=== PATIENT | female | born 1935 | race Caucasian/White ===

== ENCOUNTER → 2017-10-25 12:07 | Outpatient (CLI) | payer MEDICARE, OTHER, SELFPAY ==
--- NOTE | 2017-10-25 | DI.MG.S_ITS ---
BILATERAL DIGITAL SCREENING MAMMOGRAM 3D/2D WITH CAD: 10/25/2017 CLINICAL: Routine screening. Personal history of left breast cancer. Family history of breast cancer. Comparison is made to exams dated: 10/11/2016 mammogram, 10/07/2015 mammogram, and 09/22/2015 mammogram - [facility]. There are scattered fibroglandular elements in both breasts. Current study was also evaluated with a Computer Aided Detection (CAD) system. There are post operative findings in the left breast. No significant masses, calcifications, or other findings are seen in either breast. There has been no significant interval change. IMPRESSION: NEGATIVE There is no mammographic evidence of malignancy. A 1 year screening mammogram is recommended. This exam was interpreted at Station ID: [id number]. NOTE: For mammograms, a report in lay terms will be sent to the patient. Approximately 15% of breast malignancies will not be visualized mammographically. In the management of a palpable breast mass, a negative mammogram must not discourage biopsy of a clinically suspicious lesion. Electronically Signed By: Nolberto martinez/brigido:10/26/2017 17:41:48 letter sent: Normal Exam ACR BI-RADS Category 1: Negative 3341F
== END ==
PROVIDERS: Visit Provider Family Medicine
DX: Z12.31 Encounter for screening mammogram for malignant neoplasm of breast (principal); Z85.3 Personal history of malignant neoplasm of breast; Z80.3 Family history of malignant neoplasm of breast
CPT/HCPCS: 77063; 77067

== ENCOUNTER → 2018-10-30 15:06 | Outpatient (CLI) | payer MEDICARE, OTHER, SELFPAY ==
--- NOTE | 2018-10-30 | DI.MG.S_ITS ---
BILATERAL DIGITAL SCREENING MAMMOGRAM 3D/2D WITH CAD POST LUMPECTOMY: 10/30/2018 CLINICAL: Routine screening. Personal history of left breast cancer. Family history of breast cancer. Comparison is made to exams dated: 10/25/2017 mammogram, 10/11/2016 mammogram, and 09/22/2015 mammogram - [facility]. There are scattered fibroglandular elements in both breasts. Current study was also evaluated with a Computer Aided Detection (CAD) system. There are benign post operative findings in the left breast. No significant masses, calcifications, or other findings are seen in either breast. There has been no significant interval change. IMPRESSION: There is no mammographic evidence of malignancy. A 1 year screening mammogram is recommended. NOTE: For mammograms, a report in lay terms will be sent to the patient. Approximately 15% of breast malignancies will not be visualized mammographically. In the management of a palpable breast mass, a negative mammogram must not discourage biopsy of a clinically suspicious lesion. Electronically Signed By: Bert hunt/brigido:10/30/2018 18:06:59 letter sent: Normal Exam ACR BI-RADS Category 2: Benign Finding(s) 3342F
== END ==
PROVIDERS: PCP Family Medicine; Visit Provider Family Medicine
DX: Z12.31 Encounter for screening mammogram for malignant neoplasm of breast (principal); Z85.3 Personal history of malignant neoplasm of breast; Z80.3 Family history of malignant neoplasm of breast
CPT/HCPCS: 77063; 77067

== ENCOUNTER → 2019-06-05 15:36 | Outpatient (CLI) | payer MEDICARE, OTHER, SELFPAY ==
--- NOTE | 2019-06-05 15:39 | DI.MRI.S_ITS ---
PROCEDURE: MR HEAD/BRAIN WO/W CON INDICATIONS: Headache TECHNIQUE: Noncontrast axial T1 spin echo, axial T2 fast spin echo, sagittal and axial FLAIR, coronal T2 fast spin echo, axial gradient echo, axial diffusion and ADC through the brain. After the administration of contrast, axial and coronal T1 spin echo with fat saturation through the brain. COMPARISON: None. FINDINGS: Image quality: Excellent. CSF spaces: Basal cisterns are patent. No extra-axial fluid collections. Ventricles are normal in size and shape. Brain: No midline shift. No intracranial bleeds or masses. No abnormal intracranial enhancement. There is cerebral volume loss for age. There is periventricular white matter chronic small vessel ischemic change. The brainstem appears normal. Diffusion-weighted images demonstrate no acute ischemic insults. No chronic ischemic insults. Normal intravascular flow voids are present. Skull and face: Calvarial marrow is normal in signal. Orbits appear normal. Sinuses: Sinuses and mastoids appear clear. IMPRESSION: 1. No explanation for headache. 2. Volume loss and small vessel ischemic disease. Dictated by: Jose Renteria M.D. on 06/05/2019 at 16:40 Approved by: Jose Renteria M.D. on 06/05/2019 at 16:43
== END ==
PROVIDERS: PCP Family Medicine; Referring Provider Family Medicine; Visit Provider Family Medicine
DX: C20 Malignant neoplasm of rectum (principal); R51 Headache
CPT/HCPCS: 70553

== ENCOUNTER → 2019-11-27 12:12 | Outpatient (CLI) | payer MEDICARE, OTHER, SELFPAY ==
--- NOTE | 2019-11-27 12:34 | DI.MG.S_ITS ---
Patient Name: KELSY JOHNSON date: 1935 Sex: F Attending Physician: Mahin Indications: Date: 11/27/2019 12:26 At the request of: NABEEL DIAZ Procedure: MM screening mammo BI BILATERAL DIGITAL SCREENING MAMMOGRAM 3D/2D WITH CAD POST LUMPECTOMY: 11/27/2019 CLINICAL: Routine screening. Family history of breast cancer. Breast cancer. Comparison is made to exams dated: 10/30/2018 mammogram, 10/25/2017 mammogram, and 10/11/2016 mammogram - [facility]. There are scattered fibroglandular elements in both breasts. Current study was also evaluated with a Computer Aided Detection (CAD) system. There are benign calcifications in both breasts. There also are benign post operative findings in the left breast. No significant masses, calcifications, or other findings are seen in either breast. There has been no significant interval change. IMPRESSION: BENIGN There is no mammographic evidence of malignancy. A 1 year screening mammogram is recommended. This exam was interpreted at Station ID: [id number]. NOTE: For mammograms, a report in lay terms will be sent to the patient. Approximately 15% of breast malignancies will not be visualized mammographically. In the management of a palpable breast mass, a negative mammogram must not discourage biopsy of a clinically suspicious lesion. Electronically Signed By: Bert hunt/brigido:11/27/2019 12:47:23 letter sent: Normal Exam ACR BI-RADS Category 2: Benign Finding(s) 3342F
== END ==
PROVIDERS: PCP Family Medicine; Referring Provider Family Medicine; Visit Provider Family Medicine
DX: Z12.31 Encounter for screening mammogram for malignant neoplasm of breast (principal); Z85.3 Personal history of malignant neoplasm of breast; Z80.3 Family history of malignant neoplasm of breast
CPT/HCPCS: 77063; 77067

== ENCOUNTER → 2020-01-25 11:08 | Outpatient (CLI) | payer MEDICARE, OTHER, SELFPAY ==
--- NOTE | 2020-01-25 | DI.MRI.S_ITS ---
PROCEDURE: MR LUMBAR SPINE WO CON INDICATIONS: Radiculopathy, lumbar region TECHNIQUE: Noncontrast sagittal T1 spin echo and T2 fast echo, sagittal STIR, axial T1 and T2 fast spin echo through the lumbar spine. In cases with scoliosis, additional coronal T2 fast spin echo may be performed. COMPARISON: None. FINDINGS: Image quality: Excellent. Alignment and Curvature: Grade 1 anterolisthesis of L4 on L5. Possible chronic bilateral L5-S1 pars defects although evaluation limited by superimposed degenerative changes and technically indeterminate. Bone Marrow: Multilevel degenerative endplate sclerosis and spurring. Diffuse facet arthropathy. No acute vertebral body compression fractures. Spinal Cord: Conus medullaris terminates at the L1-L2 level. Visualized cord demonstrates normal signal and size. Paraspinous Soft Tissues: No paravertebral masses. 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 L1-L2: No canal stenosis. Mild bilateral foraminal narrowing. Lateral recesses appear grossly patent. L2-L3: Posterior annular fissure. Minimal canal narrowing. Partial effacement of both lateral recesses with bilaterally symmetric appearance. Mild bilateral foraminal narrowing. L3-L4: Mild canal narrowing. Partial effacement of both lateral recesses with bilaterally symmetric appearance. Mild bilateral foraminal narrowing. L4-L5: Mild dorsal epidural lipomatosis. Moderate canal stenosis. Partial effacement of both lateral recesses with bilaterally symmetric appearance. Mild bilateral foraminal stenosis. L5-S1: Minimal canal narrowing. Lateral recesses appear grossly patent. No foraminal stenoses IMPRESSION: Diffuse lumbar spondylosis and facet arthropathy with grade 1 anterolisthesis of L4 on L5. Moderate L4-L5 canal stenosis Multilevel, bilateral foraminal narrowing as detailed above by spinal level Dictated by: Shayan Conte M.D. on 01/27/2020 at 9:03 Approved by: Shayan Conte M.D. on 01/27/2020 at 9:11
== END ==
PROVIDERS: PCP Family Medicine; Referring Provider Family Medicine; Visit Provider Family Medicine
DX: M47.26 Other spondylosis with radiculopathy, lumbar region (principal); M43.16 Spondylolisthesis, lumbar region; M48.061 Spinal stenosis, lumbar region without neurogenic claudication
CPT/HCPCS: 72148

== ENCOUNTER → 2020-12-22 15:27 | Outpatient (CLI) | payer MEDICARE, OTHER, SELFPAY ==
--- NOTE | 2020-12-22 15:29 | DI.MG.S_ITS ---
BILATERAL DIGITAL SCREENING MAMMOGRAM 3D/2D WITH CAD: 12/22/2020 CLINICAL: Routine screening. Personal history of left breast cancer. Family history of breast cancer. Comparison is made to exams dated: 11/27/2019 mammogram, 10/30/2018 mammogram, and 10/25/2017 mammogram - [facility]. There are scattered fibroglandular elements in both breasts. Current study was also evaluated with a Computer Aided Detection (CAD) system. There are benign calcifications in both breasts. There also are benign post operative findings in the left breast. No significant masses, calcifications, or other findings are seen in either breast. There has been no significant interval change. IMPRESSION: BENIGN There is no mammographic evidence of malignancy. A 1 year screening mammogram is recommended. This exam was interpreted at Station ID: [id number]. NOTE: For mammograms, a report in lay terms will be sent to the patient. Approximately 15% of breast malignancies will not be visualized mammographically. In the management of a palpable breast mass, a negative mammogram must not discourage biopsy of a clinically suspicious lesion. Electronically Signed By: Fredrick Devine M.D., jr/brigido:12/22/2020 15:57:42 letter sent: Normal Exam ACR BI-RADS Category 2: Benign Finding(s) 3342F
== END ==
PROVIDERS: PCP Family Medicine; Referring Provider Family Medicine; Visit Provider Family Medicine
DX: Z12.31 Encounter for screening mammogram for malignant neoplasm of breast (principal); Z80.3 Family history of malignant neoplasm of breast; Z85.3 Personal history of malignant neoplasm of breast
CPT/HCPCS: 77063; 77067

== ENCOUNTER → 2021-05-04 13:01 | Outpatient (CLI) | payer MEDICARE, OTHER, SELFPAY ==
--- NOTE | 2021-05-04 13:03 | DI.MRI.S_ITS ---
PROCEDURE: MR LUMBAR SPINE WO CON INDICATIONS: Radiculopathy, lumbar region TECHNIQUE: Noncontrast sagittal T1 spin echo and T2 fast echo, sagittal STIR, axial T1 and T2 fast spin echo through the lumbar spine. In cases with scoliosis, additional coronal T2 fast spin echo may be performed. COMPARISON: [facility], MR, MR LUMBAR SPINE WO CON, 01/25/2020, 11:24. FINDINGS: Image quality: Excellent. Alignment and Curvature: Grade 1 anterior listhesis at L4-5 is again noted associated with hypertrophic facet joints. Small subchondral cyst noted on the left.. Bone Marrow: Marrow is of normal overall signal. No acute vertebral body compression fractures. Spinal Cord: Conus medullaris terminates at the L1 level. Visualized cord demonstrates normal signal and size. Paraspinous Soft Tissues: No paravertebral masses. T12-L1: Disc height is preserved. No central or foraminal stenosis. L1-L2: Disc height is preserved. No central or foraminal stenosis. L2-L3: Disc height is preserved. There is mild circumferential disc bulge resulting in mild central stenosis. No foraminal stenosis present. L3-L4: Disc height is preserved. There is a circumferential disc bulge present with mild hypertrophic facet joints. Mild central stenosis without foraminal stenosis. Edema in the interspinous ligament with bone marrow edema in the associated spinous processes is new from the prior exam. L4-L5: Hypertrophic facet joints, ligamentum flavum laxity and circumferential disc bulge all combined result in moderate central stenosis. No significant foraminal stenosis noted. L5-S1: Disc height is preserved. No central or foraminal stenosis. Hypertrophic facet joints present. Incidental left sacral perineural cyst, Tarlov cyst. IMPRESSION: 1. Multilevel degenerative disc disease and arthropathy results in moderate central stenosis at L4-5, similar prior exam. 2. Interspinous ligamental edema at L3-4 is new from the prior exam, consistent with inter spinous ligamental degeneration Approved by: Catarino Santoyo M.D. on 05/04/2021 at 15:48
== END ==
PROVIDERS: PCP Family Medicine; Referring Provider Family Medicine; Visit Provider Family Medicine
DX: M51.16 Intervertebral disc disorders with radiculopathy, lumbar region (principal); M47.26 Other spondylosis with radiculopathy, lumbar region
CPT/HCPCS: 72148

== ENCOUNTER → 2021-07-12 09:46 | Outpatient (CLI) | payer MEDICARE, OTHER, SELFPAY ==
[2021-07-12 13:05] LABS: COVID19 -Nasal RAPID Negative (Negative)
== END ==
PROVIDERS: PCP Family Medicine; Visit Provider Family Medicine Sleep Medicine
DX: Z20.822 Contact with and (suspected) exposure to COVID-19 (principal)
CPT/HCPCS: 87635; C9803

== ENCOUNTER 2021-07-14 12:19 | Day surgery (SDC) | payer MEDICARE, OTHER, SELFPAY ==
[2021-07-12 13:26] VITALS: BMI 29.0
[2021-07-14] VITALS (19 sets, daily range): BP systolic 132–160; BP diastolic 72–109; PULSE 62–108; RESP 12–18; TEMP 36.1–36.7; O2SAT 93–100; BMI 29.0
--- NOTE | 2021-07-14 | DI.RAD.S_ITS ---
PROCEDURE: XR LUMBAR SPINE 2-3V INDICATIONS: TLIF L4-5 TECHNIQUE: 3 intraoperative fluoroscopic spot films were obtained COMPARISON: None. FINDINGS: Intraoperative fluoroscopic low resolution spot films show L4-5 interbody fusion cage with posterior maryanne and screw instrumentation in good position IMPRESSION: Fluoroscopic guidance Approved by: Catarino Santoyo M.D. on 07/14/2021 at 17:54
[2021-07-14] MEDS: LACTATED RINGERS 1,000 ML 42 ML IV ×2 (13:22→16:54)
[2021-07-14] MEDS: ACETAMINOPHEN 325 MG TABLET 975 MG PO (13:24)
--- NOTE | 2021-07-14 15:35 | PM.PREOP ---
Pre-operative Note COVID-19 COVID-19 status: Negative Result date/Date tested (Pos, Neg/Pending): 07/13/21 Criteria for continued procedure: Expected advancement of disease process, Possibility delay results in more complex future surgery or treatment, Increased loss of function, Continuing or worsening of significant or severe pain, Deterioration of the patient's condition or overall health and Delay expected to result in less-positive ultimate med/surg outcome Interval Note History & Physical reviewed/Exam performed by Physician: Yes Changes to H&P: No
--- NOTE | 2021-07-14 15:44 | SUR.OPER ---
Prone on spine table, head in foam head support, padded chest and pelvic supports, gel pad at knees, lower legs supported by pillows; nipples, genitalia and toes free of pressure, arms secured on foam padded arm boards at <90 degrees abduction. Tape over blanket at thigh secured to table.
[2021-07-14] MEDS: CEFAZOLIN 2 GM/20 ML SYRINGE IV ×2 (16:26→20:51)
[2021-07-14] MEDS: BUPIVACAINE 0.25% (PF) 30 ML, EPINEPHrine 0.3 MG INJ (16:49)
[2021-07-14] MEDS: BUPIVACAINE LIPOSOME 266 MG/20 ML VIAL INJ (16:49)
--- NOTE | 2021-07-14 18:25 | P.OP_ITS ---
Operative Date/Time/Diagnoses Date of procedure: 07/14/21 Time of procedure: 16:30 Pre-op diagnosis: 1. L4-5 spondylolisthesis 2. L4-5 spinal stenosis with neurogenic claudication Post-op diagnosis: same Procedure & Clinicians Procedure: 1. L4-5 Postero-lateral and posterior interbody fusion 2. L4-5 interbody cage placement. 3. L4-5 decompressive laminectomy with bilateral facetecomies 4. L4-5 Posterior non-segmental instrumentation 5. [place] of bone marrow from iliac crest 6. Utilization of microsurgical technique and operating microscope Same procedure as scheduled: Yes Indications: Patient has been having chronic back pain and worsening lumbar neurogenic claudication due to severe spinal stenosis at L4-5 level. Patient failed multiple conservative management with worsening pain weakness and numbness in her lower extremity. Patient has been having difficulty performing activity of daily living. After discussing risks benefits of treatment options, patient elected proceed with surgery. Surgeon: Sheryl Nelson Mc Kay Machine Operator: Autumn Jhaveri Click Yes if Unassisted: No Anesthesia Type: General Operative Notes Specimen(s): none sent Prosthetic devices, grafts, tissues, transplants, or devices: Globus revolve screws, Rise cage Applied: catheter Estimated Blood Loss (mL): 50 Blood products transfused: none Procedure in detail: Patient was seen in the preoperative area. Risks and benefits of the surgery was discussed with the patient. Informed consent was obtained from the patient and placed in the chart. Surgical site was marked. Patient was taken to the operative room. General anesthesia was administered. Prophylactic antibiotic was given to the patient less than 30 min before the incision was made. Patient was placed into a prone position on the [place] table. Patient's back was then prepped and draped in the sterile fashion. Time-out was performed at this time. Using AP and lateral C-arm imaging the interval between L4-5 was identified and marked on patient's back. A 2 inch incision 2 in from midline was made on the right side first. The fascia was incised in line with skin incision. Globus MARS retractors was placed inside the incision and docked onto the L4 lamina. Using microsurgical technique and operating microscope, a L4 laminectomy and L4- 5 facetectomy was performed using a Kerrison rongeur. The disc space at L4-5 was identified. And a total diskectomy was performed at L4-5 level. The endplates were decorticated using a rasp and shaver. The total diskectomy and decortication was performed at L4-5 level in order to to accomplish a L4-5 fusion. The local bone from the laminectomy and facetectomy was saved for local bone grafting. After the total diskectomy and decortication was completed, Trifecta bone graft material was combined with local bone that was harvested earlier. At this time, a separate skin is incision was made over the iliac crest. A Jamshidi needle was inserted into the iliac crest through a separate skin incision. 5 cc of bone marrow aspiration was obtained through the separate skin incision using a Jamshidi needle from the iliac crest. The bone marrow aspiration was combined with local bone and the Trifecta bone grafting material. The bone grafting material was placed into the L4-5 interbody space along with a expandable cage. The cage was expanded to its maximum height using the torque limiting screwdriver. At this time a mirror image incision was made on the left side. The fascia was incised in line with the skin incision. Globus MARS retractor was inserted and docked onto the L4-5 posterolateral gutter. Using the power drill, posterior- lateral decortication was performed at L4-5 level until bleeding cortical bone was identified. The remaining bone grafting material was placed into the L4-5 posterior lateral gutter he order to accomplish posterolateral fusion at the L4- 5 level. Using the double C-arm technique, pedicle screws were placed into the L4-5 pedicles bilaterally. This was done by placing the Jamshidi needle into the pedicles, then placing the guidewires over the Jamshidi needle, and finally placing the cannulated screws over the guidewires bilaterally. After the pedicle screws were placed, 2 titanium rods was locked into the heads of the pedicle screws using locking caps and torque limiting screwdriver. After all the hardware was placed, and confirmed with AP and lateral C-arm imaging, the wound was then irrigated with sterile normal saline and packed with Ray-Tess gauze for 3 min to accomplish hemostasis. After the gauze was removed the deep fascia was closed with #1 Vicryl suture. The subcutaneous layer was closed with 2-0 Vicryl. The skin was closed with skin alber. Patient tolerated the procedure well. There were no complications. Complications: none Post-operative Condition: stable Disposition: PACU Plan for aftercare: Admit to inpatient hospital
[2021-07-14] MEDS: hydrOXYzine 50 MG/ML INJ IM (18:39)
[2021-07-14] MEDS: OXYCODONE IR 5 MG TABLET PO ×2 (18:48→19:18)
[2021-07-14] MEDS: TRAMADOL 50 MG TABLET PO (20:51)
[2021-07-14] MEDS: ACETAMINOPHEN 325 MG TABLET 650 MG PO (20:51)
[2021-07-14] MEDS: SODIUM CHLORIDE 0.9% 1,000 ML 100 ML IV (20:52)
[2021-07-15] MEDS: CEFAZOLIN 2 GM/20 ML SYRINGE IV (03:09)
[2021-07-15] MEDS: ACETAMINOPHEN 325 MG TABLET 650 MG PO ×2 (03:09→08:15)
[2021-07-15 04:00] VITALS: BP 104/43; PULSE 60; RESP 18; TEMP 36.5; O2SAT 98
--- NOTE | 2021-07-15 07:36 | P.PN_ITS ---
Subjective Subjective Date Patient Seen: 07/15/21 Time Patient Seen: 07:36 Interval history: Pain is been [id number]. Patient still is yet to work with physical therapy. She denies fever or chills. No nausea vomiting. Exam Vital Signs (past 8 hours): - 07/15/21 04:00 Temperature 97.7 F Pulse Rate 60 Respiratory Rate 18 Blood Pressure 104/43 L Pulse Oximetry 98 Oxygen Delivery Method Nasal Cannula Oxygen Flow Rate 0 Narrative Exam Narrative: Pleasant 86-year-old female resting comfortably in bed in no apparent distress. Motor functions intact bilateral lower extremities. Sensation grossly intact to light touch bilateral lower extremities. Const General: cooperative Orientation: alert Resp Effort & Inspection: normal respiratory effort PFSH Medical History Arthritis Breast cancer, left (2004) Colon cancer (2011) Diverticulosis HTN (hypertension) Phlebitis Seasonal allergies Surgical History History of hysterectomy History of lumpectomy of left breast (2004) History of surgery (2016) Hx of arthroscopy of left knee (2012) Hx of bilateral cataract extraction (2014) Hx of vein stripping (1971) Social History household members: none Smoking Status: Former smoker alcohol intake: current Assessment & Plan Post-op Postoperative Procedures: Procedures Operation Date: 07/14/21 14:15 Actual Procedure Side Surgeon p L4-5 TLIF Sheryl Nelson MD Postoperative day: 1 Postoperative status: doing well Postoperative status narrative: Patient progressing as expected status post L4- L5 lumbar fusion Postoperative plan: routine post-op care Postoperative plan narrative: Mobilize with physical therapy Multimodal pain management Disposition home later today or tomorrow. Quality VTE Deep Vein Thrombosis/Pulmonary Embolism Present on Admission: No
[2021-07-15] MEDS: hydrOXYzine pamoate 25 MG CAPSULE PO (08:16)
--- NOTE | 2021-07-15 09:14 | CM.DANOTE ---
DCP: Case received, EMR reviewed and met with patient. Introduced self and role. Was able to obtain information regarding patient's baseline activity status prior to her surgery. DCP assessment completed with information currently available. Patient is an 86 year old female who admitted yesterday morning to the care of the orthopedic team. PCP: Dr. Galindo Payer: confirmed: Medicare. Patient came to the hospital for a surgical procedure. Patient had L4-5 postero-lateral and posterior interbody fusion. Patient has history of chronic back pain secondary to spondylolisthesis and spinal stenosis. Met with patient in her room. She was sitting up in her chair, alert and oriented, pleasant. Patient [place] alone on [address], she is a . 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 At her baseline, she is independent and drives. She confirmed that her son, Renan, will be staying with her for a few days. P: DCP to continue to follow. She will be working with P.T. today. Plan is home when stable. Jeanna Olmos RN/Senior Bioinformatics Scientist Discharge Planning/Care Management CM Discharge Assessment Start: 07/15/21 09:13 Freq: Status: Active Protocol: Document 07/15/21 09:13 (Rec: 07/15/21 09:14 [id number]) Discharge Planning Assessment Assigned Engineer And Geologist Jeanna Olmos RN/Senior Bioinformatics Scientist Advance Directives? Yes Advance Directives on File No History Provided By Patient,Medical Record Prior Living Arrangements House Household Members none Type of transporation used prior to Drives own vehicle admit Independent with ADL's Yes Is patient alert and oriented? Yes Caregiver for Another No Barriers to Discharge No Comment Patient indicated, her son will be staying with her for a few days. Discharge Plan Home Transportation Arrangement Son Referrals Initiated None needed Whiteboard Updated in Patient Room with Yes name and ext. 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 Patient Information Reviewed Via Phone Assessment Assessment Completed With Patient Diagnostic Results BMP/CMP,CBC,EKG Comment Outside labs/ECG scanned, COVID screen @ 07/12/21 Primary Care Provider Bry Cross Seen Specialist in Last 12 Months Yes Specialist Seen Windmill Mechanic,Opthamologist/ Ferryboat Pilot,Orthopedist Comment PCP pre-op exam 06/14/21 w/labs scanned to record Primary Language Slovak Sales Negotiator Required No Height 5 ft 7 in Weight 185 lb Body Mass Index (BMI) 29.0 Hearing Ability Normal Visual Assist Magnifying Glass Dentition Type Teeth, Natural Present Barriers to Learning None Hx Anesthesia Reactions No Hx Family Anesthesia Reaction No Hx Malignant Hyperthermia No Hx Blood Transfusions No Anesthesia Review Requested No alcohol intake current alcohol intake frequency 0-2 drinks per day Smoking Status Former smoker Smoking packs per day 0.5 how long ago did patient quit smoking Quit in her 20's Substance Use Type does not use Pain Present Pain Reported Musculoskeletal Symptoms Back Pain,Difficulty Walking, Limited Range of Motion History of Falling (Recent or History of No ) Patient is completely paralyzed or No completely immobile Mental Status Oriented to own ability Is patient on oxygen? No Does patient have CUNHA/SOB No Hx Sleep Apnea No Currently Taking a Beta Mike No Can You Climb a Flight of Stairs Without Yes SOB Hx Chest Pain No Hx SOB No Hx Syncope or Dizziness No Anti-Coagulant Therapy No Has a Natural Resource Economist No Cardiac Testing No Hx Pacemaker/ICD No Pacemaker Rep Required? No Cardiac Clearance Received Not Applicable Diet Type At Home Regular dysphagia No Gastrointestinal Symptoms Loose Stools Bladder Pattern Incontinent,Urgency Urinary Catheter Present No Hx Urinary Self Catheterization No Diabetes No Patient No Lactating No Hx Drug Resistant Organism No Presence of External or Internal Medical No Devices Have you had any close contact with No someone diagnosed with COVID-19? Received a COVID vaccine? Yes Received all doses? Yes Marital Status / Lives With none Prior Living Arrangements House Number of Floors (Floors) Two Floors Support System Child/Children Does the Patient Have Assistance After Yes: Son will stay w/pt to Surgery assist with care at DC Patient Discharge Plan Description Return Home Comment Pt advised overnight length of stay per surgeon Feels Safe in Current Environment Yes Been Physically Hurt or Threatened By a No Person in Current Environment Do you have thoughts of harming yourself None or others? Are you currently considering suicide? No Do you have a plan to hurt yourself or No Plan others? Do You Have Any Spiritual Beliefs That No May Affect Your HC Choices? Do You Have Any Cultural Practices That No May Affect Your HC Choices? Who Can We Speak to About Patient's Care Family, friends Identifying Code for Release of Patient Declines to issue Information Health Care Proxy/Next of Kin Renan (son) Health Care Proxy Emergency Contact Name Renan (son) Emergency Contact Advance Directives? Yes Advance Directives on File No Requested Patient Bring Advanced Yes Directives DOS Power of Senior Software Tester Yes Power of Senior Software Tester Name Renan Power of Senior Software Tester PAC Instructions Durable medical equipment, Medications to take/avoid, Nasal antibiotic,No ETOH/ petroleum product on skin DOS, NPO,Post-op transportation,Pre -surgical wash,Sturdy shoes/ comfortable clothes,Do not bring valuables and remove jewelry
[2021-07-15] MEDS: CALCIUM CARB/VIT D3 500/200 TABLET 1 EACH PO (09:15)
--- NOTE | 2021-07-15 09:39 | P.DS_ITS ---
History of Present Illness History of Present Illness Date Patient Seen: 07/15/21 Time Patient Seen: 09:39 Chief complaint: Back pain Narrative: See progress note Discharge Providers Provider Discharge Date: 07/15/21 Primary care physician: ISAURA Lynn Consults: 07/14/21 19:45 Consult to Occupational Therapy Evaluate & Treat Comment: Physician Instructions: Evaluate and treat Consult to Physical Therapy Evaluate & Treat Comment: Physician Instructions: Evaluate and Treat Discharge provider: Cecilio Khan PA-C Summary Hospital Course Discharge Diagnosis: 1. L4-5 spondylolisthesis 2. L4-5 spinal stenosis with neurogenic claudication Hospital Course: 1. L4-5 Postero-lateral and posterior interbody fusion 2. L4-5 interbody cage placement. 3. L4-5 decompressive laminectomy with bilateral facetecomies 4. L4-5 Posterior non-segmental instrumentation 5. [place] of bone marrow from iliac crest 6. Utilization of microsurgical technique and operating microscope Same procedure as scheduled: Yes Indications: Patient has been having chronic back pain and worsening lumbar neurogenic claudication due to severe spinal stenosis at L4-5 level. Patient failed multiple conservative management with worsening pain weakness and numbness in her lower extremity.? Patient has been having difficulty performing activity of daily living.? After discussing risks benefits of treatment options, patient elected proceed with surgery. Surgeon: Sheryl Nelson Pulverizer Tender: Autumn Jhaveri Click Yes if Unassisted: No Anesthesia Type: General Operative Notes Specimen(s): none sent Prosthetic devices, grafts, tissues, transplants, or devices: Globus revolve screws, Rise cage Applied: catheter Estimated Blood Loss (mL): 50 Blood products transfused: none Patient admitted to the hospital for the above-mentioned procedure. Patient taken to the operating room. Patient back in her room recovering well as in stable condition. Discharge home today in stable condition. Exam Vital Signs (past 8 hours): - 07/15/21 04:00 Temperature 97.7 F Pulse Rate 60 Respiratory Rate 18 Blood Pressure 104/43 L Pulse Oximetry 98 Oxygen Delivery Method Nasal Cannula Oxygen Flow Rate 0 Narrative Exam Narrative: See progress note PFSH Medical History Arthritis Breast cancer, left (2004) Colon cancer (2011) Diverticulosis HTN (hypertension) Phlebitis Seasonal allergies Surgical History History of hysterectomy History of lumpectomy of left breast (2004) History of surgery (2016) Hx of arthroscopy of left knee (2012) Hx of bilateral cataract extraction (2014) Hx of vein stripping (1971) Social History household members: none Smoking Status: Former smoker alcohol intake: current Discharge Assessment & Plan Assessment and Plan Assessment: Patient progressing as expected status post L4-L5 lumbar fusion Plan of Treatment: Discharge home today in stable condition Discharge Plan Discharge Plan Patient Disposition: Home Provider Discharge Comment: Discharge home after physical therapy Discharge orders & Medications Discharge Orders: Discharge (Order); Ordered 07/15/21 Ordered By: Cecilio Khan Prescriptions: New acetaminophen 325 mg Tablet 650 mg PO Q6HR PRN (Reason: Pain, Mild (1-3)) Qty: 60 0RF docusate sodium 100 mg Capsule 100 mg PO BID Qty: 20 0RF tramadol 50 mg Tablet 50 mg PO Q4HR PRN (Reason: Pain, Moderate (4-6)) Qty: 60 0RF Continued aspirin [Aspirin Low Dose] 81 mg Tablet,Delayed Release (Dr/Ec) 81 mg PO DAILY Qty: 0 0RF cholecalciferol (vitamin D3) [Vitamin D3] 25 mcg (1,000 unit) Capsule 25 mcg PO Q OTHER DAY Qty: 0 0RF Calcium Carbonate/Vitamin D (#CALCIUM 1200 W/VITAMIN D 600 MG-100 IU) 1 sgl PO QDAY Qty: 1 0RF triamterene-hydrochlorothiazid 37.5 MG/25 MG tablet 1 tab PO QDAY Qty: 90 1RF Discontinued naproxen sodium [Aleve] 220 mg Tablet 440 mg PO DAILY PRN (Reason: Pain) 0RF Follow up/Referrals: Sheryl Nelson MD [Physician] - (2 weeks) Barbara Galindo ARNP [Primary Care Provider] - Diet/Activity/Treatments Diet: Diet as Tolerated Activity: Limit bending, lifting, twisting Skin/Wound/Dressing Care Report to your healthcare provider any signs of infection, such as:: chills, fever, increased pain, unusual drainage and unusual redness Dressing: Keep dressing clean and dry Visit Report/Discharge Packet Instructions: DI for Transforaminal Lumbar Interbody Fusion Stand Alone Forms: Surgery Discharge Discharge Data Primary Care Provider: Barbara Galindo Attending Provider: Sheryl Nelson VTE Deep Vein Thrombosis/Pulmonary Embolism Present on Admission: No
--- NOTE | 2021-07-15 09:54 | OT.IP.EVAL ---
Current Diagnoses Spondylolisthesis, lumbar region (07/14/21) Spinal stenosis, lumbar region with neurogenic claudication (07/14/21) Surgery Performed Operation Date: 07/14/21 14:15 Actual Procedures p L4-5 TLIF - Sheryl Nelson MD Past Medical History (Last Reviewed 07/15/21 @ 07:37 by Cecilio Khan PA-C) Arthritis Breast cancer, left (2004) Colon cancer (2011) Diverticulosis History of hysterectomy History of lumpectomy of left breast (2004) History of surgery (2016) HTN (hypertension) Hx of arthroscopy of left knee (2012) Hx of bilateral cataract extraction (2014) Hx of vein stripping (1971) Phlebitis Seasonal allergies Surgical History (Last Reviewed 07/15/21 @ 07:37 by Cecilio Khan PA-C) History of hysterectomy History of lumpectomy of left breast (2004) History of surgery (2016) Hx of arthroscopy of left knee (2012) Hx of bilateral cataract extraction (2014) Hx of vein stripping (1971) Occupational Therapy Inpatient Evaluation/Re-Eval M1 PT/OT-IP Prior Functional Status Start: 07/15/21 08:36 Freq: NEEDED Status: Active Protocol: Document 07/15/21 10:20 AW (Rec: 07/15/21 10:36 AW [id number]) Medical Review Prior Functional Status Medical History Reviewed Yes Communication WNL Mobility and Gait Independent without assistive device. Pt used to walk two miles per day before her pain got too bad. Activities of Daily Living and IADL's Independent with all ADL and IADL's. 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 Social History Household Members none Living Arrangements House Number of Floors (Floors) Two Floors Number of Stairs To Enter/Railing? Level entrance; 15 steps up to bedroom level with L rail going up. Home Environment Standard Height Toilet,Walk in Shower,Tub/Shower Home Equipment Quad Cane Employment Status Retired Additional Social History Comment Pt lives alone on [address] Her son, Renan, plans to stay with her ~1 week at discharge. M2 OT-IP Current Condition Start: 07/15/21 12:46 Freq: Status: Active Protocol: Document 07/15/21 09:05 CCC (Rec: 07/15/21 13:07 CCC [id number]) Occupational Therapy Current Condition Current Condition Evaluation Date 07/15/21 Treatment Diagnosis S/p L4-5 TLIF Diagnosis Onset Date 07/14/21 Post Operative Precautions Lumbar Precautions Log Roll,No Twisting,Limit Bending,Lifting Restriction of 10 lbs,Gait Belt above Incisional Area M3 OT- IP Subjective and Pain Start: 07/15/21 12:46 Freq: Status: Active Protocol: Document 07/15/21 09:05 [facility] (Rec: 07/15/21 13:07 [facility] [id number]) OT- Subjective Occupational Therapy Visit Type Type Initial Evaluation Visit Start Time 09:05 Visit Stop Time 09:54 Total Visit Minutes 49 Occupational Therapy Visit Comments Patient Comments Pt agreed to do OT eval , pt's son ,Renan in the room. Patient/Caregiver Goals TO go home. OT Pain Assessment Pain When Pain Assessed At Rest Pain Present Pain Present Pain Reported Location back Intensity 1 Scale Used Numeric (0 - 10) M4 OT- IP ADL's Start: 07/15/21 12:46 Freq: Status: Active Protocol: Document 07/15/21 09:05 [facility] (Rec: 07/15/21 13:07 [facility] [id number]) OT PQU-Shuj-Oguqeht General Evaluation Self-Feeding Ability Independent OT ADL-Grooming General Evaluation Grooming Ability Standby Assistance OT ADL-Oral Care Comments Oral Care Comments Educated best to spit into a cup or hinge at her back to best follow her back precautions. OT ADL-Dressing General Eval Upper Body Dressing Ability Standby Assistance Lower Body Dressing Ability Maximum Assistance Comments OT Dressing Comments Able to issue pt LB dressing equipment and able to practice use of body cleaner and socks aid. Pt needing assist to put on her socks. OT ADL-Toileting General Evaluation Toileting Ability Standby Assistance Comments OT Toileting Comments Pt able to comfortably lean to the side ,reach to wipe and follow her back precautions. Suggested for pt to wear pads/ brief at night and use of wet ones to increase ease and independence for hygiene needs . OT ADL-Bathing Comments OT Bathing Comments Pt not wanting to shower. Suggested having a shower chair for safety. Pt insists that she will be able to stand, however asked her how will she wash her feet. Pt then states may just sponge off initially. Suggested to have a female friend come and assist as pt not wanting her son to assist her in the bathroom. M5 OT- IP IADL's Start: 07/15/21 12:46 Freq: Status: Active Protocol: Document 07/15/21 09:05 [facility] (Rec: 07/15/21 13:07 [facility] [id number]) OT-Instrumental Activities of Daily Living Home Safety Awareness Awareness of Need for Assistance at Home Decreased Awareness Home Safety Comments Pt is a bit impulsive and underestimating her needs for assist. Pt's son to be there to assist her 24/10 for about a week. M6 OT- IP Functional Cognition Start: 07/15/21 12:46 Freq: Status: Active Protocol: Document 07/15/21 09:05 [facility] (Rec: 07/15/21 13:07 [facility] [id number]) Cognitive Factors Limiting Selfcare Function Cognitive Ability Level of Alertness Alert Patient Orientation Name,Age,Birthday,Month,Date, Year,Day of Week,Place, Situation Attention Span Ability Capable of Focused Attention, Capable of Sustained Attention Ability to Follow Commands Able to Follow One Step Commands Memory Description No Deficits Noted Safety Awareness Underestimates Need for Assistance Cognitive Comments Cognitive Assessment Comments pt a bit impulsive , needing vc to follow her back precautions and to slow down. OT- Vision and Hearing OT- Hearing Assessment OT- Hearing Assessment WFL M7 OT- IP Mobility and Balance Start: 07/15/21 12:46 Freq: Status: Active Protocol: Document 07/15/21 09:05 [facility] (Rec: 07/15/21 13:07 [facility] [id number]) OT- Bed Mobility Assessment Supine to Sit Supine to Sit Assist Contact Guard Assistance Sit to Supine Sit to Supine Assist Standby Assistance OT-Transfer Assessment Sit to and From Stand Sit to and from Stand Standby Assistance,Contact Guard Assistance Transfers Transfer Ability Standby Assistance Technique Transfer Destination Bed,Chair,Toilet Transfer Technique Stand Step Pivot Devices Transfer Assistive Devices Gait Belt,Front Wheeled Walker Comments Mobility Comments CGA for bed mobility to get upright. SBA with FWW and occasional CGA without a device. Pt would strongly benefit from a fww especially for uneven surfaces. OT- Balance Assessment Sitting Balance and Reactions Static Sitting Balance Ability Normal Dynamic Sitting Balance Ability Good Standing Balance and Reactions Static Standing Balance Ability Good Dynamic Standing Balance Ability Fair M8 OT- IP Objective Assessments Start: 07/15/21 12:46 Freq: Status: Active Protocol: Document 07/15/21 09:05 [facility] (Rec: 07/15/21 13:07 [facility] [id number]) OT-Muscle Tone Assessment Muscle Tone WNL Yes M9 OT- IP Assessment and Plan Start: 07/15/21 12:46 Freq: Status: Active Protocol: Document 07/15/21 09:05 [facility] (Rec: 07/15/21 13:07 [facility] [id number]) OT Summary Assessment and Plan Potential Rehabilitation Potential Excellent Analytic Complexity at Evaluation Low Summary OT Impairments Functional Mobility,Dressing, Bathing Progress Towards Goals Progressing Toward Goals Assessment Summary Pt low complexity and main barriers are pt is a little impulsive and needing cues to incorporate her back precautions for ADL and mobility needs. Pt issued LB dressing equipment and to get a walker from her neighbor to use and son looking into getting a shower chair. Goals Grooming Goal Independent Dressing Goal Independent Toileting Goal Independent Bathing Goal Independent Toilet Transfer Goal Independent Shower Transfer Goal Independent Days to Meet Goals 5 Frequency of Treatment Frequency Of Treatment Once a Day Treatment Plan OT Treatment Plan ADL Training,Functional Mobility,Patient/Family Education,Discharge Planning Discharge Recommendations OT Discharge Recommendations Home with 24/10 Assist Available Home Equipment Needs FWW, shower chair Transportation Needs at Discharge Private Vehicle
--- NOTE | 2021-07-15 10:20 | PT.IIE ---
Current Diagnoses Spondylolisthesis, lumbar region (07/14/21) Spinal stenosis, lumbar region with neurogenic claudication (07/14/21) Surgery Performed Operation Date: 07/14/21 14:15 Actual Procedures p L4-5 TLIF - Sheryl Nelson MD Medical History (Last Reviewed 07/15/21 @ 07:37 by Cecilio Khan PA-C) Arthritis Breast cancer, left (2004) Colon cancer (2011) Diverticulosis HTN (hypertension) Phlebitis Seasonal allergies Physical Therapy Inpatient Evaluation/Re-Eval M1 PT/OT-IP Prior Functional Status Start: 07/15/21 08:36 Freq: NEEDED Status: Active Protocol: Document 07/15/21 10:20 AW (Rec: 07/15/21 10:36 AW [id number]) Medical Review Prior Functional Status Medical History Reviewed Yes Communication WNL Mobility and Gait Independent without assistive device. Pt used to walk two miles per day before her pain got too bad. Activities of Daily Living and IADL's Independent with all ADL and IADL's. 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 Social History Household Members none Living Arrangements House Number of Floors (Floors) Two Floors Number of Stairs To Enter/Railing? Level entrance; 15 steps up to bedroom level with L rail going up. Home Environment Standard Height Toilet,Walk in Shower,Tub/Shower Home Equipment Quad Cane Employment Status Retired Additional Social History Comment Pt lives alone on [facility]. Her son, Renan, plans to stay with her ~1 week at discharge. M2 PT-IP Current Condition Start: 07/15/21 08:36 Freq: NEEDED Status: Active Protocol: Document 07/15/21 10:20 AW (Rec: 07/15/21 10:36 AW [id number]) Physical Therapy Current Condition Current Condition Evaluation Date 07/15/21 Treatment Diagnosis L4-5 TLIF; difficulty in walking Onset Date 07/14/21 M3 PT-IP Subjective Start: 07/15/21 08:36 Freq: NEEDED Status: Active Protocol: Document 07/15/21 10:20 AW (Rec: 07/15/21 10:36 AW [id number]) Subjective Physical Therapy Visit Type Type Initial Evaluation Visit Start Time 10:04 Visit Stop Time 10:20 Total Visit Minutes 16 Notes Pt's son is present throughout the evaluation. Physical Therapy Visit Comments Patient Comments Pt is willing to participate with PT [place] Get back to walking two miles per day without pain. Therapy Pain Assessment Pain When Pain Assessed During Mobility Pain Present Pain Present Pain Reported Location Bilat hips Intensity 3 Scale Used Numeric (0 - 10) M4 PT-IP Mobility and Gait Start: 07/15/21 08:36 Freq: NEEDED Status: Active Protocol: Document 07/15/21 10:20 AW (Rec: 07/15/21 10:36 AW [id number]) PT-Bed Mobility Assessment Rolling Type of Rolling Log Rolling,Roll to Left Level of Assist Standby Assistance Supine to Sit Supine to Sit Standby Assistance Sit to Supine Sit to Supine Standby Assistance PT-Transfer Assessment Sit to and From Stand Sit to and from Stand Standby Assistance Equipment Transfer Assistive Device None,Gait Belt,Front Wheeled Walker Orthotic/Prosthetic Devices or Brace: No Transfers Transfer Destination Bed,Chair Transfer Technique Stand Step Pivot Transfer Ability Level of Assist Standby Assistance Comments Mobility Comments Pt was sitting up in the chair as PT arrived. She stood SBA and used no AD to walk in the halls a total of 250 feet SBA. Gait was notable for shorter RLE stance time and occasional crossing of midline but no LOB. On return to the room, she performed bed mobility SBA with min cues for log roll technique. She stood and transferred to the chair. She agreed to ambulate with FWW for comparison and gait quality did improve. Pt returned to the room and sat in the chair. Pt was left with call light in reach and her son remained in the room. Gait Assessment Gait Gait Assistance Required: Standby Assistance Distance (Feet) 250 Assistive Devices Assistive Device None,Gait Belt,Front Wheeled Walker Orthotic/Prosthetic Devices or Brace: No Gait Deviations General Gait Pattern Antalgic,Decreased Stride Length,Decreased Feet Clearance,Narrow Based Gait Factors Limiting Gait Function Factors Limiting Gait Function Decreased Strength,Pain Comments Gait Comments See mobility comments for details. Stair Climbing Assessment Evaluation Level of Assist On Stairs Standby Assistance Devices Stair Climbing Assistive Devices Left Railing Technique/Endurance Stair Climbing Direction Ascend and Descend Stair Climbing Technique Step Over Step Number of Steps Climbed 9 Query Text: Stair Climbing Set # Repetitions (reps) 1 Comments Stair Climbing Comments Pt descended and ascended first set of carpeted steps near elevator. She noted RLE weakness and back pain consistent with symptoms before surgery. PT-Balance Assessment Sitting Balance and Reactions Static Sitting Balance Ability Good Dynamic Sitting Balance Ability Good Standing Balance and Reactions Static Standing Balance Ability Good Dynamic Standing Balance Ability Good Device Used no AD M5 PT-IP Objective Assessments Start: 07/15/21 08:36 Freq: NEEDED Status: Active Protocol: Document 07/15/21 10:20 AW (Rec: 07/15/21 10:36 AW [id number]) Orientation Orientation/Cognition Level of Alertness Alert Orientation Name,Day of Week,Place, Situation Language Function Ability No Deficits Noted Safety Awareness Understands Safety Issues Memory Description No Deficits Noted Gross Range of Motion Lower Extremity ROM Assessment Within Functional Limits Strength Lower Extremity Strength Assessment Within Functional Limits Hip 4+/5 Knee 5/5 Ankle 4+/5 Sensation Assessment Sensation Gross Sensation WNL Muscle Tone Muscle Tone WNL Yes M6 PT-IP Treatment Start: 07/15/21 08:36 Freq: NEEDED Status: Active Protocol: Document 07/15/21 10:20 AW (Rec: 07/15/21 10:36 AW [id number]) Physical Therapy Treatment Education Education Provided Precautions,Post-Op Packet, Safety Other Treatments Other Treatment Performed Educated pt and her son on post op precautions, energy conservation techniques, and recommendation for a walker at this time. Reviewed car transfers in response to pt's questions. M7 PT-IP Assessment and Plan Start: 07/15/21 08:36 Freq: NEEDED Status: Active Protocol: Document 07/15/21 10:20 AW (Rec: 07/15/21 10:36 AW [id number]) PT Summary Assessment and Plan Potential Rehabilitation Potential Good Status of Condition at Evaluation Evolving Summary Impairments Pain,Balance,Bed Mobility, Transfers,Gait Assessment Summary Katrin is an active 86 yo woman seen for PT evaluation on POD1 following L4-5 TLIF. She is independent in all regards at baseline. She required no more than SBA for all mobilities - including stairs - at this assessment. She has her son to assist her at home. She understands her precautions but does need intermittent cues to maintain them. Her son is able to provide appropriate cues. PT recommends use of a walker at this time and pt states she will be able to borrow one. Pt is safe to discharge home today. No further acute PT needs are identified. Frequency of Treatment Frequency Of Treatment Discharge Precautions Lumbar Precautions Log Roll,No Twisting,Limit Bending,Lifting Restriction of 10 lbs,Gait Belt above Incisional Area Recommendations To Nursing Amount of Assist Needed Standby Assistance Discharge Recommendations PT Discharge Recommendations Home with Assistance Transportation Needs at Discharge Private Vehicle
[2021-07-15] MEDS: TRAMADOL 50 MG TABLET PO (10:58)
--- NOTE | 2021-07-15 12:01 | PC.NURSE ---
Pt is A&Ox3 this a.m. requesting to get out of bed and ambulate to the restroom. She is saline locked, ambulates with steady gait using FWW. She reports pain manageable this a.m. at 4-10 to her back. She denies any numbness or pain down her legs and voids without difficulty. She is medically cleared by ortho PA for discharge pending PT/OT and she is cleared this a.m. by both PT&OT for discharge home. She verbalizes understanding of discharge instructions, activity, medications, signs and symptoms of infection, site care and follow-up instructions. She is escorted via w/chair by this nurse with all of her belongings to a private vehicle driven by her son at approximately 1015 (her son is going to stay with the patient for several days at her home on [address]).
== END 2021-07-15 10:20 | disposition home or self-care (01) ==
LOC: OR 12:21 → AC 12:21
PROVIDERS: PCP Nurse Practitioner Family; Referring Provider Orthopaedic Surgery Orthopaedic Surgery of the Spine; Visit Provider Orthopaedic Surgery Orthopaedic Surgery of the Spine
PROC: (CPT 22633; principal; 2021-07-14 14:15)
DX: M48.062 Spinal stenosis, lumbar region with neurogenic claudication (principal); M43.16 Spondylolisthesis, lumbar region; I10 Essential (primary) hypertension; M19.90 Unspecified osteoarthritis, unspecified site
CPT/HCPCS: 22633; 20939; 22840; 22854; 72100; 76000; 82962; 97161; 97165; 97530; 97535; C1713; C9290; J0171; J0690; J1100; J2405; J2704; J3010; J3410

== ENCOUNTER → 2021-12-28 11:32 | Outpatient (CLI) | payer MEDICARE, OTHER, SELFPAY ==
[2021-07-14 20:01] VITALS: BMI 29.0
--- NOTE | 2021-12-28 | DI.MG.S_ITS ---
BILATERAL DIGITAL SCREENING MAMMOGRAM 3D/2D WITH CAD: 12/28/2021 CLINICAL: Routine screening. Personal history of left breast cancer. Family history of breast cancer. Comparison is made to exams dated: 12/22/2020 mammogram, 11/27/2019 mammogram, 10/30/2018 mammogram, and 10/25/2017 mammogram - [facility]. There are scattered areas of fibroglandular density in both breasts (category b / 25%-50% glandular tissue). Current study was also evaluated with a Computer Aided Detection (CAD) system. There are benign calcifications in both breasts. There also are benign post operative findings in the left breast. No significant masses, calcifications, or other findings are seen in either breast. There has been no significant interval change. IMPRESSION: BENIGN There is no mammographic evidence of malignancy. A 1 year screening mammogram is recommended. This exam was interpreted at Station ID: [id number]. NOTE: For mammograms, a report in lay terms will be sent to the patient. Approximately 15% of breast malignancies will not be visualized mammographically. In the management of a palpable breast mass, a negative mammogram must not discourage biopsy of a clinically suspicious lesion. Electronically Signed By: Jose snider/brigido:12/28/2021 14:24:33 letter sent: Normal Exam ACR BI-RADS Category 2: Benign Finding(s) 3342F
== END ==
PROVIDERS: PCP Family Medicine; Referring Provider Family Medicine; Visit Provider Nurse Practitioner Family
DX: Z12.31 Encounter for screening mammogram for malignant neoplasm of breast (principal); Z85.3 Personal history of malignant neoplasm of breast; Z80.3 Family history of malignant neoplasm of breast
CPT/HCPCS: 77063; 77067

== ENCOUNTER → 2023-01-26 11:31 | Outpatient (CLI) | payer MEDICARE, OTHER, SELFPAY ==
[2021-07-14 20:01] VITALS: BMI 29.0
--- NOTE | 2023-01-26 | DI.MG.S_ITS ---
BILATERAL DIGITAL SCREENING MAMMOGRAM 3D/2D WITH CAD POST LUMPECTOMY: 01/26/2023 CLINICAL: Routine screening. Personal history of left breast cancer. Family history of breast cancer. Comparison is made to exams dated: 12/28/2021 mammogram, 12/22/2020 mammogram, and 11/27/2019 mammogram - [facility]. There are scattered areas of fibroglandular density in both breasts (category b / 25%-50% glandular tissue). Current study was also evaluated with a Computer Aided Detection (CAD) system. There are benign calcifications in both breasts. There also are benign post operative findings in the left breast. No significant masses, calcifications, or other findings are seen in either breast. There has been no significant interval change. IMPRESSION: BENIGN There is no mammographic evidence of malignancy. A 1 year screening mammogram is recommended. This exam was interpreted at Station ID: [id number]. NOTE: For mammograms, a report in lay terms will be sent to the patient. Approximately 15% of breast malignancies will not be visualized mammographically. In the management of a palpable breast mass, a negative mammogram must not discourage biopsy of a clinically suspicious lesion. Electronically Signed By: Toro esteves/brigido:01/26/2023 16:50:38 letter sent: Normal Exam ACR BI-RADS Category 2: Benign Finding(s) 3342F
== END ==
PROVIDERS: PCP Family Medicine; Referring Provider Family Medicine; Visit Provider Family Medicine
DX: Z12.31 Encounter for screening mammogram for malignant neoplasm of breast (principal); Z85.3 Personal history of malignant neoplasm of breast; Z80.3 Family history of malignant neoplasm of breast
CPT/HCPCS: 77063; 77067